=== PATIENT | male | born 1975 | race Caucasian/White ===

== ENCOUNTER 2019-06-05 07:09 | Day surgery (SDC) | payer BC, OTHER ==
[2019-06-04 10:37] VITALS: BP 128/80
[~2019-06-05] VITALS: Ht 172.7 cm; Wt 103.2 kg
[2019-06-05] VITALS (16 sets, daily range): BP systolic 112–128; BP diastolic 63–90
[~2019-06-05 07:09] MED LIST: LACTATED RINGERS 1000ML 1,000 ML IV SCH
--- NOTE | 2019-06-05 08:49 | NUR ---
POTENTIAL FOR INFECTION: SHAVED ENTIRE ABDOMEN AND RIGHT SIDE CHEST AND LATERAL SIDE PER ARCHANA MATTHEW.
[2019-06-05] MEDS ORDERED: LIDOCAINE PF 2% 5ML ABBOJECT ONE (09:50)
[2019-06-05] MEDS ORDERED: MIDAZOLAM HCL 1 MG/ML 2ML VIAL ONE (09:51)
[2019-06-05] MEDS ORDERED: PROPOFOL 10 MG/ML 20ML VIAL IV ONE (09:51)
[2019-06-05] MEDS ORDERED: ONDANSETRON HCL 4 MG/2 ML VIAL ONE (09:52)
[2019-06-05] MEDS ORDERED: ROCURONIUM 10MG/1ML SYR 10 MG/ML ML ONE (09:52)
[2019-06-05] MEDS ORDERED: FENTANYL CITRATE PF 50 MCG/1 ML 2ML VIAL ONE ×2 (09:52→10:23)
[2019-06-05] MEDS ORDERED: MEPERIDINE-PF 25 MG/ML SYG ONE (10:16)
[2019-06-05] MEDS ORDERED: BUPIVACAINE/PF 0.25% 30ML VIAL IJ ONE (10:24)
[2019-06-05] MEDS ORDERED: GLYCOPYRROLATE 1 MG/5 ML SYRINGE ONE (10:41)
[2019-06-05] MEDS ORDERED: NEOSTIGMINE 5MG/5ML SYR IV ONE (10:42)
[2019-06-05] MEDS ORDERED: KETOROLAC TROMETHAMINE 30MG/ML ONE (11:46)
--- NOTE | 2019-06-05 12:15 | NUR ---
PATIENT ARRIVED TO DAY PATIENT VIA STRETCHER BY JAMAR SUGGS. PATIENT [id number], RESPIRATIONS UNLABORED, VITAL SIGNS STABLE, DENIES ANY PAIN AT THIS TIME. DRESSING TO MID ABDOMEN IS DRY AND INTACT. DRESSING TO LEFT CHEST WALL IS DRY AND INTACT.
--- NOTE | 2019-06-05 12:39 | NUR ---
DISCHARGE INSTRUCTIONS PROVIDED TO PATIENT'S SPOUSE. INSTRUCTED TO CALL DR JENKINS'S OFFICE TODAY IN ORDER TO MAKE FOLLOW APPOINTMENT, SPOUSE VERBALIZED UNDERSTANDING. INFORMED SPOUSE THAT DR JENKINS WANTS TO SEE PATIENT TOMORROW FOR DRESSING CHANGE. INSTRUCTED NOT TO SHOWER FOR 24 HOURS, HANDOUTS PROVIDED. SPOUSE VERBALIZED UNDERSTANDING. ALL QUESTIONS/CONCERNS ADDRESSED.
--- NOTE | 2019-06-05 12:50 | NUR ---
PATIENT DISCHARGED FROM FACILITY VIA WHEELCHAIR, PATIENT ASSISTED INTO PRIVATE VEHICLE DRIVEN BY SPOUSE
== END 2019-06-05 12:50 | disposition home or self-care (01) ==
LOC: DAH 07:09
PROVIDERS: ATTEND Surgery
DX: K42.9 Umbilical hernia without obstruction or gangrene (principal); D17.1 Benign lipomatous neoplasm of skin and subcutaneous tissue of trunk; Z98.890 Other specified postprocedural states; Z72.89 Other problems related to lifestyle
CPT/HCPCS: 21555; 49585; A4215; A4221; A4222; A4223; A4450; A4452; A4606; A4663; A4930; J1885; J2001; J2175; J2250; J2405; J2704; J2710; J3010 ×2; J3490 ×2; J7120 ×2

== ENCOUNTER → 2023-06-14 | Outpatient (CLI) | payer OTHER | END | disposition home or self-care (01) | LOC: OIH 10:26 | PROVIDERS: ATTEND Internal Medicine Cardiovascular Disease | DX: Z13.6 Encounter for screening for cardiovascular disorders (principal) | CPT/HCPCS: 75571 ==

== ENCOUNTER → 2023-07-18 | Outpatient (CLI) | payer OTHER | END | disposition home or self-care (01) | LOC: SHCH 12:49 | PROVIDERS: ATTEND Internal Medicine Cardiovascular Disease | DX: I51.89 Other ill-defined heart diseases (principal); R94.31 Abnormal electrocardiogram [ECG] [EKG] | CPT/HCPCS: 93306 ==

== ENCOUNTER → 2023-07-19 | Outpatient (CLI) | payer OTHER | END | disposition home or self-care (01) | LOC: SHCH 10:35 | PROVIDERS: ATTEND Internal Medicine Cardiovascular Disease | DX: I87.2 Venous insufficiency (chronic) (peripheral) (principal); I87.1 Compression of vein | CPT/HCPCS: 93970 ==